=== PATIENT | female | born 1955 | race Two or more races ===

== ENCOUNTER 2020-05-15 14:06 | Emergency (ER) | payer OTHER ==
[~2020-05-15] VITALS: Ht 162.6 cm; Wt 77.1 kg
[2020-05-15] MEDS ORDERED: GRALISE600 MG (14:17)
[2020-05-15] MEDS ORDERED: CELEXA10 MG (14:17)
[2020-05-15] MEDS ORDERED: CLONAZEPAM0.5 M1 (14:17)
[2020-05-15] MEDS ORDERED: MONTELUKAST SODI4 M1 (14:18)
[2020-05-15] MEDS ORDERED: MEDROLPACK PO (15:51)
[2020-05-15] MEDS ORDERED: NORFLEX100MG PO (15:51)
[2020-05-15] MEDS ORDERED: KETO10TA2 PO (15:51)
== END 2020-05-15 15:54 | disposition home or self-care (01) ==
LOC: ER 14:06
DX: M54.5 Low back pain (principal)

== ENCOUNTER 2020-05-23 10:47 | Outpatient (CLI) | payer OTHER ==
[~2020-05-23 10:47] MED LIST: CELEXA10 MG; CLONAZEPAM0.5 M1; GRALISE600 MG; KETO10TA2 PO; MEDROLPACK PO; MONTELUKAST SODI4 M1; NORFLEX100MG PO
== END 2020-05-23 10:59 ==
LOC: MRI 10:47
DX: M43.17 Spondylolisthesis, lumbosacral region (principal); M54.89 Other dorsalgia
CPT/HCPCS: 72148

== ENCOUNTER 2020-08-05 11:08 | Emergency (ER) | payer OTHER ==
[~2020-08-05] VITALS: Ht 160 cm; Wt 76.2 kg
[2020-08-05] MEDS ORDERED: ANORO ELLIPTA1 EACH (11:18)
[2020-08-05] MEDS ORDERED: LIPITOR40 M1 (11:18)
== END 2020-08-05 15:22 | disposition home or self-care (01) ==
LOC: ER 11:08
DX: L50.8 Other urticaria (principal); L30.8 Other specified dermatitis